=== PATIENT | female | born 1970 | race Native Hawaiian/Other Pacific Islander ===

== ENCOUNTER 2020-02-05 14:13 | Outpatient (CLI) | payer OTHER | END 2020-02-05 23:34 | disposition home or self-care (01) | LOC: RAD 14:13 | DX: E11.9 Type 2 diabetes mellitus without complications (principal); K76.89 Other specified diseases of liver; N28.9 Disorder of kidney and ureter, unspecified; E24.9 Cushing's syndrome, unspecified; G47.30 Sleep apnea, unspecified; E61.1 Iron deficiency; M47.899 Other spondylosis, site unspecified; G62.9 Polyneuropathy, unspecified; M79.10 Myalgia, unspecified site ==